=== PATIENT | female | born 1995 | race Two or more races ===

== ENCOUNTER 2020-08-04 08:43 | Emergency (ER) | payer SELFPAY ==
[~2020-08-04] VITALS: Ht 157.5 cm; Wt 165.0 kg
[2020-08-04] MEDS ORDERED: CARB-274 EACH EAR (09:12)
[2020-08-04 09:36] VITALS: BP 129/100
== END 2020-08-04 10:12 | disposition home or self-care (01) ==
LOC: ER 09:57
DX: H92.01 Otalgia, right ear (principal)
CPT/HCPCS: 99282